=== PATIENT | male | born 1965 | race Caucasian/White ===

== ENCOUNTER → 2018-03-10 | Outpatient (REF) | payer OTHER | LOC: M SFHCPLAZ 11:05 | DX: E11.9 Type 2 diabetes mellitus without complications (principal) ==

== ENCOUNTER 2018-11-28 22:24 | Emergency (ER) | payer OTHER, SELFPAY ==
[~2018-11-28] VITALS: Ht 182.9 cm; Wt 159.1 kg
[~2018-11-28 22:24] MED LIST: LISI5TAB PO; METF1000 PO; [UNRECOGNIZED DRUG - OTHER] PO
[2018-11-28] MEDS ORDERED: GLYB5TA PO (22:29)
[2018-11-28] MEDS ORDERED: LIDOCAINE 2% W/EPIN INJ 20ML **PRES FREE INJ ONE (23:30)
[2018-11-28] MEDS ORDERED: OXYCODONE/APAP 5MG/325MG(BULK FOR ED) 1 TABLET PO ONE (23:45)
[2018-11-28] MEDS ORDERED: BACTRIM 160MG/800MG DS TAB PO ONE (23:45)
[2018-11-28] MEDS ORDERED: BACT800T5 PO (23:46)
[2018-11-29 00:15] VITALS: BP 134/80
== END 2018-11-29 00:30 | disposition home or self-care (01) ==
LOC: M ED 22:24
DX: L02.219 Cutaneous abscess of trunk, unspecified (principal); L03.319 Cellulitis of trunk, unspecified; I10 Essential (primary) hypertension; Z79.899 Other long term (current) drug therapy; F17.210 Nicotine dependence, cigarettes, uncomplicated

== ENCOUNTER 2018-12-24 00:36 | Emergency (ER) | payer MEDICAID, SELFPAY ==
[~2018-12-24] VITALS: Ht 182.9 cm; Wt 159.1 kg
[~2018-12-24 00:36] MED LIST changes: +BACT800T5 PO; +GLYB5TA PO
[2018-12-24 01:19] LABS: HEMATOCRIT 46.3 % (42.0-52.0); HEMOGLOBIN 15.3 g/dl (13.5-17.5); MEAN CORPUSCULAR VOLUME 87.7 fl (80.0-96.0); PLATELET COUNT, AUTOMATED 203 10^3/uL (150-450); RED BLOOD COUNT 5.28 10^6/uL (4.30-6.10); WHITE BLOOD COUNT 11.8 10^3/uL (4.0-10.0)
[2018-12-24 02:00] LABS: BASOPHILS 1 % (0-4); EOSINOPHILS 3 % (0-5); LYMPHOCYTES 36 % (16-52); MONOCYTES 4 % (0-8); NEUTROPHILS 56 % (35-75)
[2018-12-24 02:01] LABS: PLATELET ESTIMATE NORMAL (NORMAL)
[2018-12-24 02:03] LABS: BLOOD UREA NITROGEN 11 MG/DL (7-18); CARBON DIOXIDE LEVEL 25 MEQ/L (21-32); CHLORIDE LEVEL 105 MEQ/L (98-107); CK-MB VALUE MASS < 1.0 NG/ML (<3.6); CPK CREATINE PHOSPHOKINASE 60 U/L (39-308); CREATININE FOR GFR 0.85 MG/DL (0.70-1.30); GLOMERULAR FILTRATION RATE > 60.0 (>56); GLUCOSE, FASTING 290 MG/DL (70-100); MB/CK RELATIVE INDEX 1.67 (< OR =4); NT-PRO BNP 54 PG/ML (<125); POTASSIUM SERUM 4.1 MEQ/L (3.5-5.1); SODIUM LEVEL 137 MEQ/L (136-145); TROPONIN I < 0.02 NG/ML (< 0.10)
[2018-12-24] MEDS ORDERED: ASPIRIN 81 MG CHEW TABLET PO ONE (03:00)
[2018-12-24] MEDS: NITROGLYCERIN 0.4 MG SUBL TABLET SL PRN ×3 (03:13→03:31)
[2018-12-24] MEDS ORDERED: ISOVUE-370 76% 100ML VIAL (Q9967) As Ordered ONE (03:19)
[2018-12-24 03:31] VITALS: BP 167/93
[2018-12-24] MEDS: MORPHINE 4 MG/ML 1ML VIAL/SYRINGE (J2270) IV PRN ×2 (04:00→05:02)
--- NOTE | 2018-12-24 04:30 | REPVR ---
EXAM: CT Angiography Chest With Contrast EXAM DATE/TIME: 12/24/2018 3:00 AM CLINICAL HISTORY: 53 years old, male; Chest pain; Type not specified TECHNIQUE: Imaging protocol: Axial computed tomographic angiography images of the chest with intravenous contrast using CT angiography protocol. Coronal and sagittal reformatted images were created and reviewed. 3D rendering: MIP reconstructed images were created and reviewed. Radiation optimization: All CT scans at this facility use at least one of these dose optimization techniques: automated exposure control; mA and/or kV adjustment per patient size (includes targeted exams where dose is matched to clinical indication); or iterative reconstruction. Contrast material: ISO; Contrast volume: 100 ml; Contrast route: AC; COMPARISON: CR PORTABLE CHEST X-RAY 12/24/2018 1:08 AM FINDINGS: Pulmonary arteries: The main pulmonary artery measures 35 mm. No central pulmonary embolism is identified. Aorta: The ascending thoracic aorta measures 34 mm. No gross or obvious aortic dissection is identified distal to the mid arch. Artifact and image degradation precludes detailed evaluation of the ascending thoracic aorta. Lungs: Minimal dependent atelectasis. Pleural space: Unremarkable. No pneumothorax. No pleural effusion. Heart: Coronary artery calcifications are present. Lymph nodes: Unremarkable. No enlarged lymph nodes. Bones/joints: Unremarkable. No acute fracture. Soft tissues: Unremarkable. IMPRESSION: Negative CTA chest. No central pulmonary embolism is identified. Electronically signed by: Patel Manzanares On 12/24/2018 04:29:45 AM
[2018-12-24 04:41] LABS: CK-MB VALUE MASS 2.4 NG/ML (<3.6); MB/CK RELATIVE INDEX 2.96 (< OR =4); TROPONIN I 0.18 NG/ML (< 0.10)
[2018-12-24] MEDS ORDERED: HEPARIN DRIP 25,000 UNITS in APPROPRIATE DILUENT 1 EA IV SCH (05:00)
[2018-12-24] MEDS ORDERED: HEPARIN SOD (PORCINE) 5000 UNITS/ML VIAL IV ONE (05:15)
[2018-12-24] MEDS ORDERED: MORPHINE 4 MG/ML 1ML VIAL/SYRINGE (J2270) As Ordered ONE (05:35)
--- NOTE | 2018-12-24 05:42 | REP ---
Clinical: Chest pain. Comparison: 05/04/2014 Findings: Mediastinum and cardiac silhouette are stable with mild cardiomegaly again suggested. Pulmonary vascular congestion and mild interstitial edema cannot be excluded. No focal consolidation or obvious effusion. No pneumothorax. Skeletal structures intact. Impression: Cannot exclude mild interstitial edema. Electronically Signed by Raul Hdez MD 12/24/2018 05:34 A
[2018-12-24 05:43] VITALS: BP 152/74
[2018-12-24] MEDS ORDERED: MORPHINE 4 MG/ML 1ML VIAL/SYRINGE (J2270) IV ONE ×2 (05:45→06:00)
[2018-12-24 05:48] LABS: INR 0.98; PARTIAL THROMBOPLASTIN TIME 25.1 SECONDS (25.0-38.4); PROTHROMBIN TIME 12.7 SECONDS (11.8-14.0)
--- NOTE | 2018-12-24 21:37 | ECGEPIP ---
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
== END 2018-12-24 05:45 | disposition short-term general hospital (02) ==
LOC: M ED 00:36
DX: I20.0 Unstable angina (principal); I25.2 Old myocardial infarction; Z72.0 Tobacco use; J84.9 Interstitial pulmonary disease, unspecified; I51.7 Cardiomegaly; Z79.84 Long term (current) use of oral hypoglycemic drugs; Z79.899 Other long term (current) drug therapy
CPT/HCPCS: 36415; 71045; 71275; 80048; 82550; 82553; 83880; 84443; 85025; 85610; 85730; 93005; 93041; 94760; 96374; 96376; 99285; J2270; Q9967

== ENCOUNTER → 2019-05-13 | Outpatient (REF) | payer MEDICAID, OTHER, SELFPAY ==
[2019-05-13 16:16] LABS: HEMATOCRIT 47.7 % (42.0-52.0); HEMOGLOBIN 15.3 g/dl (13.5-17.5); MEAN CORPUSCULAR HEMOGLOBIN 29.3 pg (27.0-33.0); MEAN CORPUSCULAR HGB CONC 32.1 g/dl (32.0-36.5); MEAN CORPUSCULAR VOLUME 91.2 fl (80.0-96.0); PLATELET COUNT, AUTOMATED 256 10^3/uL (150-450); RED BLOOD COUNT 5.23 10^6/uL (4.30-6.10); WHITE BLOOD COUNT 10.1 10^3/uL (4.0-10.0)
[2019-05-13 16:21] LABS: ALBUMIN 3.7 GM/DL (3.2-5.2); BLOOD UREA NITROGEN 17 MG/DL (7-18); CARBON DIOXIDE LEVEL 22 MEQ/L (21-32); CHLORIDE LEVEL 107 MEQ/L (98-107); GLOMERULAR FILTRATION RATE > 60.0 (>56); GLUCOSE, FASTING 195 MG/DL (70-100); PHOSPHORUS LEVEL 3.7 MG/DL (2.5-4.9); POTASSIUM SERUM 4.4 MEQ/L (3.5-5.1); SODIUM LEVEL 138 MEQ/L (136-145)
== END ==
LOC: M LABDRAWP 13:21
PROVIDERS: ATTEND Internal Medicine Cardiovascular Disease
DX: R07.2 Precordial pain (principal); I25.2 Old myocardial infarction; R94.31 Abnormal electrocardiogram [ECG] [EKG]

== ENCOUNTER → 2019-12-25 | Outpatient (REF) | payer MEDICAID, OTHER ==
[2019-12-25 12:21] LABS: HEMATOCRIT 46.2 % (42.0-52.0); HEMOGLOBIN 15.1 g/dl (13.5-17.5); MEAN CORPUSCULAR HEMOGLOBIN 29.4 pg (27.0-33.0); MEAN CORPUSCULAR HGB CONC 32.7 g/dl (32.0-36.5); MEAN CORPUSCULAR VOLUME 89.9 fl (80.0-96.0); PLATELET COUNT, AUTOMATED 227 10^3/uL (150-450); RED BLOOD COUNT 5.14 10^6/uL (4.30-6.10); WHITE BLOOD COUNT 10.1 10^3/uL (4.0-10.0)
[2019-12-25 12:35] LABS: ALBUMIN 3.6 GM/DL (3.2-5.2); ALT/SGPT 33 U/L (12-78); BILIRUBIN,TOTAL 0.3 MG/DL (0.2-1.0); BLOOD UREA NITROGEN 16 MG/DL (7-18); CALCIUM LEVEL 8.9 MG/DL (8.5-10.1); CARBON DIOXIDE LEVEL 21 MEQ/L (21-32); CHLORIDE LEVEL 109 MEQ/L (98-107); CHOLESTEROL LEVEL 171 MG/DL (<200); CHOLESTEROL RISK RATIO 6.333 (<5); CREATININE FOR GFR 0.95 MG/DL (0.70-1.30); GLOMERULAR FILTRATION RATE > 60.0 (>56); GLUCOSE, FASTING 198 MG/DL (70-100); HDL CHOLESTEROL 27 MG/DL (>40); LDL CHOLESTEROL 108 MG/DL (<100); NON-HDL-C 144 MG/DL; NT-PRO BNP 32 PG/ML (<125); POTASSIUM SERUM 4.4 MEQ/L (3.5-5.1); SODIUM LEVEL 139 MEQ/L (136-145); TOTAL PROTEIN 7.4 GM/DL (6.4-8.2); TRIGLYCERIDES LEVEL 180 MG/DL (<150)
[2019-12-25 13:23] LABS: MAU/CREAT RATIO 8.6 MCG/MG (0.0-30.0)
[2019-12-25 13:53] LABS: HEMOGLOBIN A1c 8.1 %
== END ==
LOC: M SFHCPLAZ 09:37
PROVIDERS: ATTEND Family Medicine
DX: E11.40 Type 2 diabetes mellitus with diabetic neuropathy, unspecified (principal); I10 Essential (primary) hypertension; Z68.41 Body mass index [BMI] 40.0-44.9, adult; E78.2 Mixed hyperlipidemia